=== PATIENT | female | born 1990 | race Caucasian/White ===

== ENCOUNTER 2018-08-18 15:22 | Emergency (ER) | payer BC ==
[~2018-08-18] VITALS: Ht 152.4 cm; Wt 78.0 kg
[2018-08-18 15:25] VITALS: Ht 152.4 cm; Wt 78.0 kg
[2018-08-18 16:45] VITALS: BP 110/71
== END 2018-08-18 16:46 | disposition home or self-care (01) ==
LOC: ED 15:22
DX: M54.5 Low back pain (principal)
CPT/HCPCS: J1885